=== PATIENT | female | born 1970 | race American Indian/Alaskan Native ===

== ENCOUNTER 2020-11-22 08:25 | Outpatient (CLI) | payer OTHER ==
--- NOTE | 2020-11-22 16:29 | Magnetic Resonance Report ---
BILATERAL BREAST MRI WITH AND WITHOUT CONTRAST CLINICAL INFORMATION/INDICATION: Patient has history of bilateral papillomas. Patient recently develo ped bloody left nipple discharge as well as a palpable abnormality in the right breast. Subsequent ou tside imaging demonstrated bilateral breast lesions which were biopsied and found to be papillary les ions. Additionally there was focal asymmetry in the right subareolar breast mammographically that is requiring further evaluation with MRI. Dr. Rivas has requested MRI prior to bilateral surgical re moval of the biopsy-proven papillary lesions. TECHNICAL: Coronal STIR, axial T1 and T2-weighted fat sat images were obtained precontrast. 19 cc Cla riscan contrast was injected intravenously and serial axial T1 weighted images with fat saturation we re obtained. 3-D MIP projections, kinetic analysis and subtraction imaging was utilized to evaluate. A dedicated 8-channel breast coil was used for image acquisition. COMPARISON: Previous outside mammogram 07/14/2020 and bilateral breast ultrasound 09/21/2020 FINDINGS: Breast Density: The breasts are heterogeneously dense, which may obscure small masses. Background Parenchymal Enhancement: Mild Right breast: There is a 9 mm round mass with slightly irregular margins in the anterior breast at 12 :00. There is central necrosis within the mass consistent with pathology report of a necrotic papilla ry lesion as demonstrated on recent biopsy. There is a biopsy clip adjacent to the mass noted just sl ightly lateral and superior to the mass. The mass is approximately 15 mm from the nipple and approxim ately 8 cm from the chest wall. There is an enhancing dilated duct extending from the mass to the nip ple. Additionally, scattered throughout the middle aspect of the breast there are several small nodul es showing mild enhancement. Additionally in the deep retroareolar breast there is an enhancing densi ty measuring approximately 9 mm. There is stippled ductal enhancement extending from this mass toward the nipple for a length of 4 cm. No abnormal right axillary adenopathy. Left breast: In the left subareolar breast there is an enhancing oval mass measuring approximately 10 mm in greatest diameter. This mass has been recently biopsied. There is an associated biopsy clip. T he mass is approximately 10 mm from the nipple and approximately 8 cm from the chest wall. There is a small round enhancing mass in the 3:00 position. This mass is approximately 2.5 cm from th e nipple, 8.5 cm from chest wall, and 9 cm from the lateral skin surface. This mass is certainly susp icious for papilloma. It is located just slightly lateral to the biopsy-proven papillary lesion in th e subareolar left breast. No additional abnormalities are seen in the left breast. No left axillary adenopathy. Additional findings: None. IMPRESSION: 1. Recently biopsied necrotic papillary lesion in the right breast, 12:00 anterior depth, is noted. T here does appear to be central necrosis. The appearance is not typical for papilloma and surgical exc ision is recommended. Please note there is a dilated enhancing duct extending from the mass to the ni pple. 2. Multiple small mildly enhancing nodules are seen scattered throughout the right central breast. Th fermín are certainly suspicious for multiple papillomas. 3. Additionally there is a slightly irregular enhancing mass in the deep retroareolar right breast wi th stippled ductal enhancement extending from this mass toward the nipple for a distance of 4 cm. I c annot exclude a malignant process in this location. If there is no mammographic correlate with additi onal imaging, MRI guided biopsy may be required to exclude malignancy. 4. No MRI abnormality is seen in the region of the asymmetric density noted on recent mammogram in th e subareolar right breast. 5. Biopsy-proven left subareolar papilloma is noted. Additionally there is a 4 mm enhancing round mas s seen just lateral to this biopsy-proven papilloma that is also suspicious for either papilloma or s mall carcinoma. Patient is undergoing surgical consultation with Dr. Rivas. Follow up recommendation: Surgical consultation BI-RADS Category 4: Suspicious for Malignancy. Signer Name: Gela Barillas MD Signed: 11/22/2020 4:24 PM Workstation Name: [id number]
== END 2020-11-22 08:26 | disposition home or self-care (01) ==
LOC: SPVIMAG 08:25
PROVIDERS: ATTEND Surgery
DX: N63.12 Unspecified lump in the right breast, upper inner quadrant (principal); N64.1 Fat necrosis of breast; N63.11 Unspecified lump in the right breast, upper outer quadrant; N64.52 Nipple discharge; R92.2 Inconclusive mammogram; N60.81 Other benign mammary dysplasias of right breast; N60.82 Other benign mammary dysplasias of left breast
CPT/HCPCS: A9575; C8908; 77049

== ENCOUNTER 2020-12-13 10:06 | Outpatient (CLI) | payer OTHER ==
--- NOTE | 2020-12-13 16:06 | Mammography Report ---
DIGITAL DIAGNOSTIC MAMMOGRAM WITH CAD CONVENTIONAL, 12/13/2020 CLINICAL INFORMATION / INDICATION: Post ultrasound-guided biopsy TECHNIQUE: Digital left mammographic imaging was performed. This examination was interpreted with the benefit of Computer-aided Detection analysis. COMPARISON: Left mammogram 11/08/2017, MR breast 11/22/2020 FINDINGS: Breast Density: The breasts are heterogeneously dense, which may obscure small masses. The clip from the ultrasound-guided biopsy today is seen in the lateral upper quadrant anteriorly cor responding to the general site of the MR abnormality. An additional clip is seen more inferiorly and medially from a recent biopsy in the interval. IMPRESSION: Appropriate clip placement for today's ultrasound-guided biopsy Follow up recommendation: Per biopsy results Post biopsy imaging. A "normal" or negative report should not discourage follow up or biopsy of a clinically significant f inding. A written summary of these findings will be mailed to the patient. The patient will be entered into a mammography reporting system which will generate a reminder letter for the patient's next appointmen t at the appropriate interval. According to the [employer], yearly mammograms are recommended starting at age 40 and continuing as long as a woman is in good health. Breast MRI is recommended for women with an mike roximately 20-25% or greater lifetime risk of breast cancer, including women with a strong family his tory of breast or ovarian cancer and women who have been treated for Hodgkin's disease. Signer Name: Humble Araujo MD Signed: 12/13/2020 4:01 PM Workstation Name: [id number]
--- NOTE | 2020-12-13 16:13 | Ultrasound Report ---
ULTRASOUND BREAST TARGETED LEFT LIMITED, 12/13/2020 CLINICAL INFORMATION / INDICATION: Enhancing lesion on recent MR. TECHNIQUE: Targeted ultrasound evaluation was performed of the area of interest. COMPARISON: MR breast 11/22/2020 FINDINGS: In the left breast at 2:30, roughly 2 cm from the nipple, corresponding with the site of th e small nodular enhancing MR nodule recently, a similar sized 3 mm nearly rounded solid nodule is see n with slight border irregularity. IMPRESSION: Corresponding nodule is seen for MR abnormality in the left breast Follow up recommendation: Left breast ultrasound-guided biopsy, subsequently performed (see below) BI-RADS Category 4: Suspicious for Malignancy. ULTRASOUND-GUIDED LEFT BREAST BIOPSY INDICATION: Nodule found on ultrasound corresponding to the enhancing nodule described on MR COMPARISON: MR breast 11/22/2020 CONSENT: Procedure was discussed at length in advance with the patient. Possible risks and benefits w ere discussed including the possibility of bleeding. Postbiopsy care was discussed. Opportunity for q uestions was provided. Patient is not on anticoagulant therapy and reports no pertinent allergies. PROCEDURE: Timeout was performed. The 3 mm nodule in the 2:30 position was targeted sonographically. Using aseptic technique and under local anesthesia, with real-time sonographic guidance, the area of interest was biopsied. Multiple specimens were obtained with a 14-gauge Bard biopsy device and sent t o pathology for analysis. A metallic clip was placed at the end of the procedure. Site was secured an d the patient was sent for post biopsy mammogram. Patient tolerated the procedure well and left the d epartment in good condition. IMPRESSION: Successful ultrasound-guided left breast biopsy A normal or "negative" report should not preclude biopsy or follow-up of a clinically suspicious find ing. Signer Name: Humble Araujo MD Signed: 12/13/2020 4:09 PM Workstation Name: [id number]
--- NOTE | 2020-12-13 16:28 | Magnetic Resonance Report ---
ATTEMPTED MR GUIDED RIGHT BREAST BIOPSY X2 INDICATION: Known bilateral high risk lesions from recent biopsies, bilateral abnormal areas of enhan cement on MR COMPARISON: MR breast 11/22/2020 Contrast: 16 cc Clariscan IV PROCEDURE: Procedure was discussed at length with the patient. Patient is not on anticoagulant therap y and has no pertinent allergies. Patient gave informed consent. Initial noncontrast fiducial images were obtained. Patient was then administered intravenous contrast in the dorsum of the left hand. During this administration patient alert of the technologist that th ere was a problem with the IV which functioned well immediately before the procedure. The technologis t discovered that the IV had infiltrated. This caused focal swelling of the dorsum of the hand which was treated subsequently with compresses. Examination of the images showed mild motion artifact and m isregistration. The contrasted images showed a small amount of enhancement but despite significant ti me examining the images it was felt this was not adequate. The more central linear area of interest w as felt to be identified but the nodular regions which also was to undergo biopsy today could not claire jacque an confidently be identified for targeting. We could not administer more gadolinium due to limit s on dosage. Instead of having the patient undergo 2 consecutive MR biopsy procedures on the right, I explained to the patient that we would not be able to do the MR guided biopsy today. However, while the patient w as in the department, she had targeted ultrasound of the left breast to address an enhancing lesion o n that side. A good correlate was discovered and underwent ultrasound-guided left breast biopsy today . Patient left the department in good condition. CONCLUSION: Due to an IV infiltration problem as discussed above, we were unable to perform the right breast two-site MR guided biopsy today. This will still need to be performed and can be scheduled. Signer Name: Humble Araujo MD Signed: 12/13/2020 4:23 PM Workstation Name: [id number]
== END 2020-12-13 10:07 | disposition home or self-care (01) ==
LOC: SPVIMAG 10:06
PROVIDERS: ATTEND Surgery
DX: N63.21 Unspecified lump in the left breast, upper outer quadrant (principal); R92.8 Other abnormal and inconclusive findings on diagnostic imaging of breast; E78.00 Pure hypercholesterolemia, unspecified; Z98.890 Other specified postprocedural states; Z80.3 Family history of malignant neoplasm of breast; Z88.5 Allergy status to narcotic agent; Z91.011 Allergy to milk products
CPT/HCPCS: 19083; 19085; 76642; 77065; 88305; A9575